=== PATIENT | male | born 1950 | race Caucasian/White ===

== ENCOUNTER 2017-06-17 19:01 | Emergency (ER) | payer MEDICARE ==
[~2017-06-17] VITALS: Ht 170.2 cm; Wt 72.6 kg
[~2017-06-17 19:01] MED LIST: GABA-529 PO; HYDR-4100 PO; HYDR12.5 PO; NORCO5 PO
[2017-06-17 19:02] VITALS: BP_SYST 144
[2017-06-17 19:50] LABS: BASOPHILS % (AUTO) 0.4 % (0.0-2.0); EOSINOPHILS # (AUTO) 0.2 K/uL (0.0-0.4); EOSINOPHILS % (AUTO) 3.1 % (0.0-4.0); HEMATOCRIT 35.2 % (36-54); HEMOGLOBIN 11.9 g/dL (14.0-18.0); LYMPHOCYTES # (AUTO) 1.9 K/uL (1.0-5.5); LYMPHOCYTES % (AUTO) 35.6 % (20.5-51.5); MEAN CORPUSCULAR HEMOGLOBIN 33 pg (27-31); MEAN CORPUSCULAR HGB CONC 34 % (32-36); MEAN CORPUSCULAR VOLUME 96 fL (79.0-98.0); MONOCYTES # (AUTO) 0.6 K/uL (0.0-1.0); MONOCYTES % (AUTO) 11.3 % (1.7-9.3); NEUTROPHILS # (AUTO) 2.7 K/uL (1.8-7.7); NEUTROPHILS % (AUTO) 49.6 % (40.0-70.0); PLATELET COUNT (AUTO) 176 K/uL (130-430); RED BLOOD CELL COUNT(AUTO) 3.66 MIL/uL (4.2-6.2); RED CELL DISTRIBUTION WIDTH 13.7 % (9.0-15.0); WHITE BLOOD COUNT (AUTO) 5.4 K/uL (4.8-10.8)
[2017-06-17 19:53] LABS: CREATININE 1.03 mg/dL (0.55-1.30); POTASSIUM 3.8 mmol/L (3.5-5.1)
[2017-06-17 19:57] LABS: INR 0.9 (0.80-1.20); PROTHROMBIN TIME 10.3 SECS (9.5-12.5)
[2017-06-17 20:00] LABS: ALBUMIN 3.6 g/dL (3.4-4.8); TOTAL BILIRUBIN 0.2 mg/dL (0.0-1.0); TOTAL PROTEIN, SERUM 7.1 g/dL (6.4-8.3)
[2017-06-17] MEDS ORDERED: LIP10 PO (20:10)
[2017-06-17] MEDS ORDERED: MET10 PO (20:10)
[2017-06-17] MEDS ORDERED: OMEP20CA10 PO (20:10)
[2017-06-17] MEDS ORDERED: VENL37.510 PO (20:10)
[2017-06-17] MEDS ORDERED: POTA10TA80 PO (20:10)
[2017-06-17] MEDS ORDERED: ALBU8.5H8 INH (20:10)
[2017-06-17] MEDS ORDERED: IMI50 PO (20:10)
[2017-06-17] MEDS ORDERED: TERA5CAP58 PO (20:10)
[2017-06-17] MEDS ORDERED: FINA5TAB3 PO (20:10)
[2017-06-17] MEDS ORDERED: MIRT15TA7 PO (20:10)
[2017-06-17] MEDS ORDERED: MOME13HF2 INH (20:10)
[2017-06-17 21:13] VITALS: BP_SYST 149
== END 2017-06-17 22:25 | disposition home or self-care (01) ==
LOC: SED 19:01
DX: R07.89 Other chest pain (principal); J44.9 Chronic obstructive pulmonary disease, unspecified; I25.2 Old myocardial infarction; I10 Essential (primary) hypertension; Z79.899 Other long term (current) drug therapy; Z88.8 Allergy status to other drugs, medicaments and biological substances
CPT/HCPCS: 36415; 71010; 80053; 82550-TC; 83880; 84484; 85025; 85610-TC; 85730-TC; 93005; 99285